=== PATIENT | female | born 1940 | race Caucasian/White ===

== ENCOUNTER 2019-11-12 07:00 | Inpatient (IN) ==
[2019-11-12] MEDS ORDERED: CeFAZolin Syr 2,000MG/20 ML 2,000 MG/20 ML SYRINGE IVPB ONE (07:37)
[2019-11-12] MEDS ORDERED: *HR* Propofol 200 MG/20 ML VIAL IVP ONE (07:40)
[2019-11-12] MEDS ORDERED: *HR* Succinylcholine 200 MG/10 ML VIAL IVP ONE (07:41)
[2019-11-12] MEDS ORDERED: Ringers Solution, Lactated 1,000 ML IVC SCH ×2 (07:45→12:34)
[2019-11-12] MEDS ORDERED: *HR* FentaNYL (PF) 100 MCG/2 ML VIAL ONE ×2 (08:47→11:25)
[2019-11-12] MEDS ORDERED: *HR* HYDROmorphone PF 0.5 MG/0.5 ML SYRINGE IVP PRN (08:52)
[2019-11-12] MEDS ORDERED: *HR* OxyCODONE Immed Rel 5 MG TABLET PO PRN ×2 (08:52→12:34)
[2019-11-12] MEDS ORDERED: Ondansetron 4 MG/2 ML VIAL IVP ONE (08:52)
[2019-11-12] MEDS ORDERED: Ondansetron 4 MG/2 ML VIAL ONE (09:05)
[2019-11-12] MEDS ORDERED: Lidocaine -MPF 2% 2 ML VIAL ONE (09:05)
[2019-11-12] MEDS ORDERED: Dexamethasone 4 MG/ML VIAL ONE (09:05)
[2019-11-12] MEDS ORDERED: ROPIVACAINE/PF/NS 0.25% 1 EACH SYRINGE INTRAART ONE (10:08)
[2019-11-12] MEDS ORDERED: Ropivacaine/PF 0.5% 30 ML VIAL ONE (10:08)
[2019-11-12] MEDS ORDERED: Ethanol\\Acetic Acid\\Na Ace\\Ben 1,000 ML IRRIG.SOLN IR ONE (10:19)
[2019-11-12] MEDS ORDERED: EPHEDrine 50 MG/ML VIAL ONE (10:57)
[2019-11-12] MEDS ORDERED: *HR* PHENYLEPHRINE 1,000 MCG/10 ML SYRINGE IVP ONE (11:01)
[2019-11-12] MEDS ORDERED: MOM Conc 10 ML UD.LIQ PO PRN (12:34)
[2019-11-12] MEDS ORDERED: Ondansetron 4 MG/2 ML VIAL IVP PRN (12:34)
[2019-11-12] MEDS ORDERED: Sennosides 8.6 MG TABLET PO PRN (12:34)
[2019-11-12] MEDS ORDERED: *HR* OxyCODONE/APAP 5/325 TABLET PO PRN (12:34)
[2019-11-12] MEDS ORDERED: Acetaminophen 325 MG TABLET PO PRN (12:34)
[2019-11-12 12:38] LABS: Hematocrit 37.1 % (35.3-44.9); Hemoglobin 11.5 g/dL (11.5-15.4)
[2019-11-12] MEDS ORDERED: ceFAZolin 2,000 MG in 0.9 % Sodium Chloride 100 ML IVPB SCH (16:00)
[2019-11-12] MEDS: amLODIPine 5 MG TABLET PO SCH (16:21)
[2019-11-12] MEDS: Apixaban 5 MG TABLET PO SCH ×2 (16:28→20:58)
[2019-11-12] MEDS ORDERED: *HR* Enoxaparin 30 MG/0.3 ML SYRINGE SQ SCH (18:00)
[2019-11-12] MEDS ORDERED: Scopolamine Patch 1.5 MG PATCH.TD72 TD ONE (20:02)
[2019-11-12] MEDS: ceFAZolin 2,000 MG in 0.9 % Sodium Chloride 100 ML IVPB SCH (20:58)
[2019-11-13] MEDS: ceFAZolin 2,000 MG in 0.9 % Sodium Chloride 100 ML IVPB SCH (03:12)
[2019-11-13 05:36] LABS: Hematocrit 33.9 % (35.3-44.9); Hemoglobin 10.6 g/dL (11.5-15.4)
[2019-11-13 05:59] LABS: BUN/Creatinine Ratio 25 (6-26); Blood Urea Nitrogen 15 mg/dL (8-23); Calcium 8.9 mg/dL (8.6-10.3); Carbon Dioxide 25 mEq/L (23-29); Chloride 103 mEq/L (98-107); Glucose 94 mg/dL (70-105); Osmolality,Calculated 285 (280-300); Potassium 3.9 mEq/L (3.5-5.1); Sodium 137 mEq/L (136-145); eGFR For African Americans > 60 (> 60); eGFR For Non-African Americans > 60 (> 60)
[2019-11-13 06:35] VITALS: BP 152/77
[2019-11-13] MEDS: amLODIPine 5 MG TABLET PO SCH (08:10)
[2019-11-13] MEDS: Apixaban 5 MG TABLET PO SCH (08:11)
== END 2019-11-13 12:48 | disposition home or self-care (01) | DRG 483 ==
LOC: SAMDAY 07:00 → 3NENU 12:32
PROVIDERS: ADMIT Orthopaedic Surgery; ATTEND Orthopaedic Surgery

== ENCOUNTER 2019-11-22 10:25 | Inpatient (IN) ==
[2019-11-22] MEDS ORDERED: Naloxone 0.4 MG/ML INJ IVP PRN (14:04)
[2019-11-22] MEDS: Pantoprazole 40 MG VIAL IVP SCH (16:15)
[2019-11-22] MEDS: *HR* OxyCODONE Immed Rel 5 MG TABLET PO PRN ×2 (16:15→22:55)
[2019-11-22] MEDS ORDERED: SODIUM CHLORIDE/NAHCO3/KCL/PEG 4,000 ML SOLN.RECON PO ONE (17:00)
[2019-11-22 19:01] LABS: Hematocrit 36.8 % (35.3-44.9)
[2019-11-23 01:32] LABS: Basophils # 0.1 K/mcL (0.0-0.2); Basophils % 0.7 %; Eosinophils # 0.1 K/mcL (0.0-0.6); Eosinophils % 0.7 %; Hematocrit 32.5 % (35.3-44.9); Hemoglobin 9.9 g/dL (11.5-15.4); Immature Granulocytes % 0.5 % (0-4); Lymphocytes # 0.6 K/mcL (0.6-4.6); Lymphocytes % 7.7 %; Mean Corpuscular HGB Conc 30.5 g/dL (31.6-35.5); Mean Corpuscular Volume 88.8 fL (83.0-100.0); Monocytes # 0.7 K/mcL (0.0-1.3); Monocytes % 9.6 %; Platelet Count 309 K/mcL (140-400); Red Blood Count 3.66 M/mcL (3.82-4.97); Red Cell Distribution Width 14.2 % (11.5-14.5); Segmented Neutrophils % 80.8 %; White Blood Count 7.4 K/mcL (4.3-11.1)
[2019-11-23 01:54] LABS: BUN/Creatinine Ratio 24 (6-26); Blood Urea Nitrogen 10 mg/dL (8-23); Calcium 8.6 mg/dL (8.6-10.3); Carbon Dioxide 22 mEq/L (23-29); Chloride 104 mEq/L (98-107); Glucose 96 mg/dL (70-105); Osmolality,Calculated 277 (280-300); Potassium 3.7 mEq/L (3.5-5.1); Sodium 134 mEq/L (136-145); eGFR For African Americans > 60 (> 60); eGFR For Non-African Americans > 60 (> 60)
[2019-11-23] MEDS: Pantoprazole 40 MG VIAL IVP SCH ×2 (05:34→18:03)
[2019-11-23] MEDS: amLODIPine 5 MG TABLET PO SCH (08:12)
[2019-11-23] MEDS ORDERED: *HR* FentaNYL (PF) 100 MCG/2 ML VIAL ONE (12:45)
[2019-11-23] MEDS ORDERED: Simethicone 40 MG/0.6 ML MLS IR ONE ×2 (12:45→12:47)
[2019-11-23] MEDS ORDERED: *HR* Midazolam HCl 5 MG/5 ML VIAL IVP ONE ×3 (12:45→12:47)
[2019-11-23] MEDS ORDERED: *HR* FentaNYL (PF) 100 MCG/2 ML VIAL IVP ONE (12:47)
[2019-11-23] MEDS: *HR* FentaNYL (PF) 100 MCG/2 ML VIAL IVP ONE ×2 (13:10→13:12)
[2019-11-23] MEDS: *HR* OxyCODONE Immed Rel 5 MG TABLET PO PRN ×2 (14:58→20:26)
[2019-11-23] MEDS: *HR* HYDROcodone/Acet 5/325 mg TABLET PO PRN (18:10)
[2019-11-23] MEDS: Apixaban 5 MG TABLET PO SCH (20:26)
[2019-11-23] MEDS: metroNIDAZOLE 500 MG TABLET PO SCH (20:26)
[2019-11-24] MEDS: Ondansetron 4 MG/2 ML VIAL IVP PRN (00:17)
[2019-11-24] MEDS: Pantoprazole 40 MG VIAL IVP SCH ×2 (05:29→17:22)
[2019-11-24 06:17] LABS: Hemoglobin 9.4 g/dL (11.5-15.4); Mean Corpuscular HGB Conc 31.3 g/dL (31.6-35.5); Mean Corpuscular Hemoglobin 26.9 pg (28.0-33.3); Mean Corpuscular Volume 85.7 fL (83.0-100.0); Mean Platelet Volume 8.9 fL (9.4-12.4); Platelet Count 311 K/mcL (140-400); Red Cell Distribution Width 13.9 % (11.5-14.5); White Blood Count 8.9 K/mcL (4.3-11.1)
[2019-11-24] MEDS: Apixaban 5 MG TABLET PO SCH ×2 (08:45→20:27)
[2019-11-24] MEDS: amLODIPine 5 MG TABLET PO SCH (08:46)
[2019-11-24] MEDS: metroNIDAZOLE 500 MG TABLET PO SCH (08:47)
[2019-11-24 11:28] LABS: Bilirubin,Urine Negative (Negative); Blood,Urine Small (Negative); Clarity,Urine Clear (Clear); Color,Urine Yellow (Yellow); Glucose,Urine (UA) Normal (Normal); Ketones,Urine 15 mg/dL (Negative); Leukocyte Esterase,Urine Negative (Negative); Nitrite,Urine Negative (Negative); Protein,Urine Negative (Neg-Trace); Specific Gravity,Urine 1.017 (1.010-1.025); Urobilinogen,Urine Normal (Normal)
[2019-11-24 11:31] LABS: Bacteria,Urine None Seen per hpf (None-Few); Hyaline Casts,Urine None Seen per lpf (None-Few); Squamous Epithelial Cell,Urine Many per lpf (None-Few); WBC,Urine 0-3 per hpf (0-3)
[2019-11-24] MEDS: *HR* HYDROcodone/Acet 5/325 mg TABLET PO PRN (17:22)
[2019-11-25 03:30] LABS: Hemoglobin 8.8 g/dL (11.5-15.4); Mean Corpuscular HGB Conc 30.3 g/dL (31.6-35.5); Mean Corpuscular Hemoglobin 25.9 pg (28.0-33.3); Mean Corpuscular Volume 85.3 fL (83.0-100.0); Platelet Count 304 K/mcL (140-400); Red Cell Distribution Width 13.9 % (11.5-14.5); White Blood Count 6.6 K/mcL (4.3-11.1)
[2019-11-25 03:49] LABS: BUN/Creatinine Ratio 30 (6-26); Blood Urea Nitrogen 17 mg/dL (8-23); Calcium 8.4 mg/dL (8.6-10.3); Carbon Dioxide 25 mEq/L (23-29); Chloride 105 mEq/L (98-107); Glucose 99 mg/dL (70-105); Osmolality,Calculated 286 (280-300); Potassium 3.3 mEq/L (3.5-5.1); Sodium 137 mEq/L (136-145); eGFR For African Americans > 60 (> 60); eGFR For Non-African Americans > 60 (> 60)
[2019-11-25] MEDS: Pantoprazole 40 MG VIAL IVP SCH (05:38)
[2019-11-25] MEDS ORDERED: Potassium Chloride Elixir 20 MEQ/15 ML UDC PO ONE (07:28)
[2019-11-25] MEDS: amLODIPine 5 MG TABLET PO SCH (09:05)
[2019-11-25] MEDS: Apixaban 5 MG TABLET PO SCH (09:05)
[2019-11-25] MEDS: Ondansetron 4 MG/2 ML VIAL IVP PRN (09:50)
[2019-11-25 11:38] VITALS: BP 131/82
[2019-11-25] MEDS: *HR* HYDROcodone/Acet 5/325 mg TABLET PO PRN (13:53)
== END 2019-11-25 13:57 | disposition home or self-care (01) | DRG 394 ==
LOC: 3NENU → SUATTDRO 14:04
PROVIDERS: ADMIT Internal Medicine; ATTEND Internal Medicine